=== PATIENT | male | born 1965 | race American Indian/Alaskan Native ===

== ENCOUNTER 2016-08-06 11:24 | Emergency (ER) | payer BC, OTHER ==
[2016-08-06 16:38] VITALS: BP 191/124
== END 2016-08-06 16:58 | disposition left against medical advice (07) ==
LOC: ED 11:24
DX: R51 Headache (principal); R42 Dizziness and giddiness; Z53.21 Procedure and treatment not carried out due to patient leaving prior to being seen by health care provider
CPT/HCPCS: 93005; 93010